=== PATIENT | male | born 1955 | race Caucasian/White ===

== ENCOUNTER 2022-12-20 19:52 | Emergency (ER) | payer MEDICARE, SELFPAY ==
[2022-12-20] VITALS (21 sets, daily range): BP systolic 137–178; BP diastolic 72–89; PULSE 64–72; RESP 16; TEMP 35.8; O2SAT 94–97; BMI 32.9
--- NOTE | 2022-12-20 20:15 | ED.NURSE ---
Recently completed doxycycline 12/18/21 for eyelid infection
[2022-12-20 20:43] LABS: Basophils Absolute Auto 0.02 K/uL (0.00-0.30); Basophils Percent Auto 0.4 % (0.0-3.0); Eosinophils Absolute Auto 0.15 K/uL (0.00-0.50); Hematocrit 45.3 % (37.0-53.0); Hemoglobin* 15.9 gm/dL (13.5-17.5); Lymphocytes Absolute Auto 1.13 K/uL (0.90-2.90); Lymphocytes Percent Auto 22.3 % (20-44); Mean Corpuscular HGB Conc 35 gm/dL (32-36); Mean Corpuscular Hemoglobin 32 pg (26-34); Mean Corpuscular Volume 90 fL (80-100); Monocytes Percent Auto 10.1 % (0.0-11.0); Neutrophils Absolute Auto 3.26 K/uL (1.7-7.0); Neutrophils Percent Auto 64.2 % (42.0-72.0); Platelet Count* 125 K/uL (140-440); RDW Coefficient of Variation % 12.6 % (11.5-15.5); Red Blood Count 5.03 m/uL (4.30-5.90); White Blood Count* 5.07 K/uL (4.50-11.00)
[2022-12-20 20:44] LABS: Slide Review Reflex No
[2022-12-20 20:56] LABS: Albumin* 4.3 g/dL (3.3-5.0); Chloride* 105 mmol/L (96-114)
--- OUTSIDE RECORDS SUMMARY | 2022-12-20 20:56 | XMS_ITS | Continuity of Care Document ---
Author Name Unknown Organization [facility] Address [address] [address] [place] [address] Phone Care Team Providers Care Manufacturing Quality Technician Name Role Phone Bryce Durant MD Unavailable Unavailable Allergies, Adverse Reactions, Alerts Substance Reaction Status Criticality No Known allergies Medications Medication Instructions Dosage Effective Dates (start - stop) Status Comments Lopressor 100 mg Tab Take two tablets by mouth daily - Active Aspirin Low Dose 81 mg Tab, Delayed Release one tablet a day - Active MiralaxBisacodylMagCit Colon Prep Use as directed No Longer Active MiralaxBisacodylMagCit Colon Prep Use as directed - No Longer Active lisinopril 5 mg Tab Take one tablet by mouth daily - No Longer Active hydrochlorothiazide 25 mg Tab one tablet a day No Longer Active Lipitor 40 mg Tab twice a day No Longer Active Procedures Procedure Date Colonoscopy Flex; W/remov Les- 17 Colonoscopy Flex; W/bx /mx Level Iv-surg Path Gross/micro 17 Colonoscopy Flex; W/remov Les- 08 Level Iv-surg Path Gross/micro 08 Colonoscopy Flex; W/remov Les- 07 Level Iv-surg Path Gross/micro 07 Advance Directives Directive Yes / No Effective Date File Name No Information Encounters Encounter Description Practice Location Reason(s) For Visit Diagnoses Date Provider Providers Copied on Encounter [facility], [address] [address], [place], [place], [id number], [place] tel:[phone] [facility] Benign colon polypPersonal history of colonic polypsDiverticulo sis of colon without hemorrhageExterna l hemorrhoidsBenign neoplasm of ascending colonBenign neoplasm of sigmoid colonBenign neoplasm of rectum 7 Carleen Wu. [address], [place], [place], [id number] , [place]. tel: [phone] Referring Provider: Referral Self. [facility], [address] [address], [place], [place], [id number], [place] tel:[phone] [facility] No Information 7 Rasta Lee. [address], [facility] [address], [place], [place], [id number] , [place]. tel: [phone] [facility], [address] [address], [place], [place], [id number], [place] tel:[phone] [facility] No Information 6 Rasta Lee. [address], [facility] [address], [place], [place], [id number] , [place]. tel: [phone] Referring Provider: Tj Casey, [address] [place], [address]. tel:[phone] [facility], [address] [address], [place], [place], [id number], [place] tel:[phone] [facility] Colon Cancer ScreeningPersonal History Colon PolypsDigestive Neoplasm Nos 8 Rasta Lee. [address], [facility] [address], [place], [place], [id number] , [place]. tel:[phone] Referring Provider: Evan Blank MD, [address] [place], [address]. tel:[phone] [facility], [address] [address], [place], [place], [id number], [place] tel:[phone] Richie [facility] Colon Cancer ScreeningDivertic ulosis Of ColonFamilial Polyposis 9200 7 Rasta Lee. [address], [facility] [place], [id number] , [place]. tel:[phone] Referring Provider: Listed Not. Family History Family Member Type Diagnosis Age At Onset Father Problem (finding) Mother Problem (finding) Alive and well Mother Problem (finding) malignant neoplasm of o vary Payers Payer name Insurance type Covered libertarian ID Authoriza tilavonne(s) Medicare NGS MB [id number] Medicare Partners CI Social History Type Description Quantity Date Captured Comments Alcohol Use Details Unknown Caffeine Use Details Unknown Tobacco Use Status No Information Smoking Status Never smoker Sex Male Vital Signs Date / Time: Height Weight BMI Pulse Rate Blood Pressure Temperature Respiratory Rate Body Surface Area Head Circumference Head Circ. Percentile Wt./Dayday. Percentile BMI percentile Pulse Ox Inhaled Ox 1:15 PM 67.00 in 74.830 kg (165.00 lbs) 25.8 0 kg/m eter (2) 67 /min 165/89 mm[Hg] 0.00 F 16 /min 99 % Chief Complaint And Reason For Visit No Information Reason For Referral Reason For Referral No Information Plan Of Treatment Date Type Action Status No Information History Of Present Illness Encounter Date Complaint History Of Prese nt Illness No Information Functional Status Date Functional Assessmen t No Information Instructions Date Instruction Additional Infor mation Colon Cancer Prevention Related to Benign colon polyp Colon Polyps Related to Benig n colon polyp Diverticulosis/Diverticulitis Re lated to Benign colon polyp High Fiber Diet Related to Benig n colon polyp Assessments Type Assessment Date assessment Benign colon polyp assessment Personal history of colonic poly ps assessment Diverticulosis of colon without hemorrhage assessment External hemorrhoids Patient Care Teams Name Effective Dates (start - stop) Status Members No Information
[2022-12-20 20:57] LABS: Potassium* 4.3 mmol/L (3.6-5.1); Sodium* 139 mmol/L (135-149)
[2022-12-20 20:59] LABS: Alkaline Phosphatase* 98 U/L (40-150); Aspartate Amino Transferase* 72 U/L (12-35); Bilirubin Direct* 0.3 mg/dL (0.0-0.5); Bilirubin Total* 0.8 mg/dL (0.1-1.5); Carbon Dioxide* 30 mmol/L (20-32); Estimated Glomerular Filt Rate 82 ml/min
[2022-12-20 21:00] LABS: Alanine Aminotransferase* 54 U/L (4-50); Blood Urea Nitrogen* 14 mg/dL (7-30); Calcium* 9.3 mg/dL (8.4-10.6); D Dimer Quantitative* 0.56 ug/ml (0.00-0.50); Glucose* 172 mg/dL (60-115)
[2022-12-20 21:02] LABS: C Reactive Protein* 0.6 mg/dL (0.5-1.0)
[2022-12-20 21:13] LABS: NT Pro B Type NatriureticPept* 37 pg/mL; Troponin I* < 0.01 ng/mL (0.01-0.04)
--- NOTE | 2022-12-21 00:53 | ED_ITS ---
HPI - Chest Pain General Chief Complaint: Chest Pain Stated Complaint: Chest pain, lightheaded, dizzy, sweaty Time Seen by Provider: 12/20/22 20:22 History of Present Illness HPI narrative: 66-year-old man presenting to the emergency department with concern of right- sided chest pressure that has been waxing and waning to some degree since yesterday. Has been accompanied with sensation of lightheadedness even a little dizziness where he has even felt a little unsteady, he describes flushing sweats as well as tingling in his hands. Eyes have been a little blurry as well through this. He associates tingling in his hands with blood pressure in the 160s prompting him to check. He says he does not normally check his blood pressures where he has been noted to have rapid labile pressures; says that there had been some discussion of seeing a blood pressure specialist. Acknowledges underlying history of anxiety. He has taken 0.5 mg of lorazepam. Also taken 325 mg of aspirin. Feels a little bit better at this point. Early this morning he did take another dose of his amlodipine. He says when he starts to feel tingling in his hands he knows that his blood pressure is around 160 and that makes him more stressed. Does have a history of cardiac stenting. Was worried that he might be having heart attack or about to have a stroke. Tries to control breathing in order to control stress. Elaborates that had concerns regarding cholesterol and wondering if this may be contributing to his symptoms. Has not had a sense of palpitations or rapid heart rate. 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 He describes the efforts he is making at dietary changes, increasing water intake and limited supplement/vitamin ingestion. Related Data Home Medications Medication Instructions Recorded Confirmed Lactobacil rhamnosus GG 10 billion 1 cap PO DAILY 12/20/22 12/20/22 cell-inulin 200 mg sprinkle capsule ([email or web address] [employer]) amlodipine 2.5 mg tablet 2.5 mg PO DAILY 12/20/22 12/20/22 aspirin 81 mg tablet,delayed 81 mg PO DAILY 12/20/22 12/20/22 release coenzyme [id number] E 100 mg-100 cap PO 12/20/22 unit capsule ezetimibe 10 mg tablet 10 mg PO DAILY 12/20/22 12/20/22 lisinopril 40 mg tablet 40 mg PO DAILY 12/20/22 12/20/22 lorazepam 1 mg tablet (Ativan) 1 mg PO Q8H PRN 12/20/22 12/20/22 metoprolol succinate 100 mg 100 mg PO DAILY 12/20/22 12/20/22 capsule sprinkle, ext. release 24 hr multivitamin with minerals-folic 1 tab PO DAILY 12/20/22 12/20/22 acid 120 mcg chewable tablet (Centrum Adult 50 Plus Fresh-Fruity) omega-3 fatty acids 1,000 mg PO DAILY 12/20/22 12/20/22 rosuvastatin 20 mg tablet (Crestor) 20 mg PO DAILY 12/20/22 12/20/22 vitamin C 500 mg-multivitamin with 1 tab PO DAILY 12/20/22 12/20/22 minerals chewable tablet (Emergen-C) Previous Rx's Medication Instructions Recorded hydroxyzine HCl 25 mg tablet 25 - 50 mg PO TID PRN stress #30 12/20/22 tabs Allergies Allergy/AdvReac Type Severity Reaction Status Date / Time No Known Drug Allergies Allergy Verified 12/20/22 19:57 Review of Systems Status of ROS Reports: 6 or more systems reviewed and unremarkable except as noted in History and below PFSH [facility] Social History Smoking Status: Former smoker Do you use any of these nicotine containing products: None Second hand tobacco smoke exposure: No How often do you have a drink containing alcohol: 4 or more times a week How many standard drinks containing alcohol do you have on a typical day: 1 or 2 How often do you have six or more drinks on one occasion: Never AUDIT-C Alcohol total score: 4 Non-prescribed substance use: denies use service: No Exam Narrative Exam Narrative: Pleasant. Initially little flushed. Mildly anxious. Pleasantly talkative. Cranial nerves 2-12 intact --with PERRLA. Neck is supple with strong equal carotid upstroke. Head is atraumatic. Lungs are clear. Heart with regular rate and rhythm. Little distant. Abdomen is overweight soft and nontender. Palpation to the chest does not reproduce pain. There is no supraclavicular crepitus. Lower extremities pretibial around the ankle are with very mild pitting edema. Moving all extremities without difficulty with good strength, they are well perfused. Const Vital Signs, click to edit/add: Vital Signs - 24 hr 12/20/22 19:59 12/20/22 20:39 12/20/22 20:06 Temperature 96.4 F L Pulse Rate 69 Pulse Rate [Femoral] 72 Respiratory Rate 16 Blood Pressure Blood Pressure [Left Upper Arm] 178/89 H Pulse Oximetry 97 95 95 Oxygen Delivery Method Room Air Room Air 12/20/22 20:15 12/20/22 20:17 12/20/22 20:30 Temperature Pulse Rate 67 68 67 Pulse Rate [Femoral] Respiratory Rate Blood Pressure 146/83 H Blood Pressure [Left Upper Arm] Pulse Oximetry 95 96 94 Oxygen Delivery Method 12/20/22 20:31 12/20/22 20:32 12/20/22 20:45 Temperature Pulse Rate 64 67 69 Pulse Rate [Femoral] Respiratory Rate Blood Pressure 153/79 H Blood Pressure [Left Upper Arm] Pulse Oximetry 95 94 95 Oxygen Delivery Method 12/20/22 20:47 12/20/22 21:00 12/20/22 21:01 Temperature Pulse Rate 71 67 67 Pulse Rate [Femoral] Respiratory Rate Blood Pressure 153/81 H 141/89 H Blood Pressure [Left Upper Arm] Pulse Oximetry 95 96 95 Oxygen Delivery Method 12/20/22 21:15 12/20/22 21:16 12/20/22 21:30 Temperature Pulse Rate 70 66 67 Pulse Rate [Femoral] Respiratory Rate Blood Pressure 145/78 H Blood Pressure [Left Upper Arm] Pulse Oximetry 94 95 94 Oxygen Delivery Method 12/20/22 21:31 12/20/22 21:32 12/20/22 21:47 Temperature Pulse Rate 67 64 Pulse Rate [Femoral] Respiratory Rate Blood Pressure 137/78 160/87 H Blood Pressure [Left Upper Arm] Pulse Oximetry 95 94 Oxygen Delivery Method 12/20/22 21:53 12/20/22 22:00 12/20/22 22:02 Temperature Pulse Rate 64 65 65 Pulse Rate [Femoral] Respiratory Rate Blood Pressure 140/72 H Blood Pressure [Left Upper Arm] Pulse Oximetry 94 95 96 Oxygen Delivery Method Documenting provider has reviewed patient's vital signs: yes Course Vital Signs Vital signs: Initial Vital Signs Respiratory Effort Normal, Spontaneous, Non-Labored 12/20/22 19:56 Respiratory Depth Normal 12/20/22 19:56 Respiratory Pattern Normal 12/20/22 19:56 Vital Signs Temperature 96.4 F L 12/20/22 19:59 Pulse Rate 72 12/20/22 19:59 Respiratory Rate 16 12/20/22 19:59 Blood Pressure 178/89 H 12/20/22 19:59 Pulse Oximetry 97 12/20/22 19:59 Oxygen Delivery Method Room Air 12/20/22 19:59 Temperature 96.4 F L 12/20/22 19:59 Pulse Rate 65 12/20/22 22:02 Respiratory Rate 16 12/20/22 19:59 Blood Pressure 140/72 H 12/20/22 22:02 Pulse Oximetry 96 12/20/22 22:02 Oxygen Delivery Method Room Air 12/20/22 20:06 MDM - Chest Pain MDM Narrative Medical decision making narrative: Given the constellation of his symptoms I suspect anxiety is playing a leading role here. I do acknowledge underlying health problems. Due to duration of this discomfort at this point would do 1 set of labs. Monitor on gear generator set up operator. Will evaluate for indication of ischemic cardiac event, arrhythmia/dysrhythmia, pulmonary embolus, metabolic abnormality, pneumonia, vascular disruption. EKG as below without evidence of ischemia or arrhythmia. Monitored on gear generator set up operator without event. Labs are overall reassuring. Mr. Schmidt as I return to discuss with him on a few occasions, is overall improved. Blurriness has also resolved. Mildly elevated transaminases I suspect would be related to fatty liver. He says he is pending an upper level ultrasound of some sort. While lorazepam is available perhaps hydroxyzine might be another option if might be needing treatment more frequently. Admittedly it is hard to distinguish panic attacks from potential heart attack. See patient discharge plan Lab Data Attestation: I reviewed the patient's lab results. Labs: Lab Results 12/20/22 Range/Units 20:00 WBC 5.07 (4.50-11.00) K/uL RBC 5.03 (4.30-5.90) m/uL Hgb 15.9 (13.5-17.5) gm/dL Hct 45.3 (37.0-53.0) % MCV 90 (80-100) fL MCH 32 (26-34) pg MCHC 35 (32-36) gm/dL RDW Coeff of Cassidy 12.6 (11.5-15.5) % Plt Count 125 L (140-440) K/uL Neut % (Auto) 64.2 (42.0-72.0) % Lymph % (Auto) 22.3 (20-44) % Irion % (Auto) 10.1 (0.0-11.0) % Eos % (Auto) 3.0 (0.0-7.0) % Baso % (Auto) 0.4 (0.0-3.0) % Neut # (Auto) 3.26 (1.7-7.0) K/uL Lymph # (Auto) 1.13 (0.90-2.90) K/uL Irion # (Auto) 0.50 (0.00-0.90) K/UL Eos # (Auto) 0.15 (0.00-0.50) K/uL Baso # (Auto) 0.02 (0.00-0.30) K/uL D-Dimer Quant (PE/DVT) 0.56 H (0.00-0.50) ug/ml Sodium 139 (135-149) mmol/L Potassium 4.3 (3.6-5.1) mmol/L Chloride 105 (96-114) mmol/L Carbon Dioxide 30 (20-32) mmol/L BUN 14 (7-30) mg/dL Creatinine 1.0 (0.5-1.5) mg/dL Estimated Creat Clear 66.10 Estimated GFR 82 ml/min Glucose 172 H (60-115) mg/dL Calcium 9.3 (8.4-10.6) mg/dL Magnesium 2.0 (1.5-2.6) mg/dL Total Bilirubin 0.8 (0.1-1.5) mg/dL Direct Bilirubin 0.3 (0.0-0.5) mg/dL AST 72 H (12-35) U/L ALT 54 H (4-50) U/L Alkaline Phosphatase 98 (40-150) U/L Troponin I < 0.01 L (0.01-0.04) ng/mL C-Reactive Protein 0.6 (0.5-1.0) mg/dL NT-Pro-B Natriuret Pep 37 pg/mL Total Protein 8.0 (6.0-8.3) g/dL Albumin 4.3 (3.3-5.0) g/dL POC Troponin I 0.00 L (0.01-0.04) ng/ml ECG Data Attestation: I personally reviewed and interpreted this ECG as follows: (Normal sinus rhythm rate of 67. No ischemic changes appreciated.) Discharge Plan Discharge Clinical Impression: Anxiety, Atypical chest pain Patient Disposition: Home, Self-Care Condition: Improved Additional Instructions: Stay active. Get outside in this nicer weather. Yes. Get some friends together and play some paint ball or something. Can try this hydroxyzine if you start feeling extra stressed. I would follow up this coming week in primary care to discuss blood pressure management and any further workup that they might deem appropriate. This conversation can certainly also occur with Cardiology as it sounds like your treatment has been little complicated historically. Otherwise return for persistent, worsening chest pain, accompanied by nausea, diaphoresis, shortness of breath, new and focal weakness, loss of vision. I realize this is hard to distinguish from exacerbation of anxiety. I would say the myriad of symptoms you described does seem more typical of exacerbations of anxiety. Prescriptions: New hydroxyzine HCl 25 mg tablet 25 - 50 mg PO TID PRN (Reason: stress) Qty: 30 0RF No Action amlodipine 2.5 mg tablet 2.5 mg PO DAILY omega-3 fatty acids Capsule 1,000 mg PO DAILY Emergen-C 500 mg tablet,chewable 1 tab PO DAILY [facility] 10 billion cell -200 mg capsule, sprinkle 1 cap PO DAILY metoprolol succinate 100 mg capsule,sprinkle,ER 24hr 100 mg PO DAILY rosuvastatin [Crestor] 20 mg tablet 20 mg PO DAILY lisinopril 40 mg tablet 40 mg PO DAILY ezetimibe 10 mg tablet 10 mg PO DAILY aspirin 81 mg tablet,delayed release (DR/EC) 81 mg PO DAILY Centrum Adult 50 Fresh-Fruity 120 mcg tablet,chewable 1 tab PO DAILY coenzyme [id number] E 100-100 mg-unit capsule PO lorazepam [Ativan] 1 mg tablet 1 mg PO Q8H PRN Follow Up/Referrals: Provider,Not a Local [Primary Care Provider] - Stand Alone Forms: ReferMe Info Instructions
== END 2022-12-20 22:15 | disposition home or self-care (01) ==
PROVIDERS: Emergency Provider Family Medicine
DX: R07.89 Other chest pain (principal); F41.9 Anxiety disorder, unspecified
CPT/HCPCS: 36415; 80048; 80076; 83735; 83880; 84484; 85025; 85379; 86140; 93005; 94761; 99284